=== PATIENT | male | born 1940 | race Asian ===

== ENCOUNTER 2016-05-15 00:44 | Day surgery (SDC) | payer MEDICARE, OTHER ==
[2016-05-15] VITALS (12 sets, daily range): BP systolic 111–142; BP diastolic 68–111; PULSE 67–87; RESP 15–22; O2SAT 92–97
[~2016-05-15 00:44] MED LIST: ACYC400T2 PO; APIX5TAB PO; ATOR20TA PO; CALC-952 PO; CHOL10008 PO; GABA-502 PO; GLUC100016 PO; HYDR12.5 PO; MULT-36 PO; TAMS0.4C98 PO
[2016-05-15] MEDS ORDERED: Phenylephrine 10,000 mCg/mL Inj ONE (00:45)
[2016-05-15] MEDS ORDERED: fentaNYL-PF 50 mCg/mL 2 mL Inj ONE (00:45)
[2016-05-15] MEDS ORDERED: EPHEDrine/NS 5 mg/mL 5 mL Syringe ONE (00:45)
[2016-05-15] MEDS ORDERED: Succinylcholine Chloride 20 mg/mL 5 mL Inj ONE (00:45)
[2016-05-15] MEDS ORDERED: Ondansetron 2 mg/mL 2 mL Inj ONE (00:45)
[2016-05-15] MEDS ORDERED: Phenylephrine/NS 100 mCg/mL 10 mL Syringe IVPUSH ONE (00:45)
[2016-05-15] MEDS ORDERED: Propofol 10,000 mCg/mL 20 mL Inj ONE (00:45)
[2016-05-15] MEDS ORDERED: Lactated Ringer's 1,000 ML IV SCH ×2 (05:00→10:26)
[2016-05-15] MEDS ORDERED: 0.9% Sodium Chloride 1,000 ML IV SCH (06:11)
[2016-05-15 06:41] LABS: BASOPHILS % (AUTO) 0.6 % (0-3); EOSINOPHILS % (AUTO) 2.8 % (0-5); MONOCYTES % (AUTO) 8.1 % (4-12); Mean Corpuscular Hemoglobin 31.3 pg (27.0-35.0); Mean Corpuscular Volume 91.9 fL (81-100); NEUTROPHILS % (AUTO) 58.4 % (40-74); Platelet Count 226 bil/L (150-400)
--- NOTE | 2016-05-15 06:42 | NUR ---
Patient admitted for Atrial flutter ablation with Dr. Herring. He is accompanied by his Obdulia.
[2016-05-15 06:55] LABS: INR 1.01 ratio
--- NOTE | 2016-05-15 07:50 | PCM.HPANE ---
Patient Data Date of Service: May 15, 2016 Surgeon Admitting Provider: Attending Provider:Davon Herring MD Primary Care Physician:Ge Montes MD Other Provider:Christian Rose Anesthesia Reason for Visit Typical Atrial Flutter Ht/WT & BMI Height (Feet): 5 Height (Inches): 9.00 Height (Centimeters): 175.3 Weight (Kilograms): 77 Body Mass Index 0.00 Allergies Coded Allergies: No Known Allergies (Verified Allergy, Unknown, 02/16/16) Past Anesthesia History Anesthesia History: Positive for:: Abnormal Airway (did not bring hearing aids) , Difficult Intubation, Denies:: Anesthesia Reactions, Fam Anesthesia Reaction, Fam Malignant Hypertherm, Malignant Hyperthermia Diabetes History Hx Diabetes?: No MRSA MRSA: No Medications Blood Thinner: Aspirin Last Dose Blood Thinner: May 14, 2016 Hypertension Medication: No Home Meds Incl Beta Leonarda: No Reported Medications Cholecalciferol (Vitamin D3) (Vitamin D3)1,000 Unit Tab.chew1,000 Unit PO DAILY 05/14/16 Apixaban (Eliquis)5 Mg Tablet5 Mg PO BID 05/14/16 Calcium Carbonate/Vitamin D3 (Calcium 500 mg Chewable Tablet)1 Each Tab.chew1 Each PO DAILY 05/14/16 Tamsulosin (Flomax)0.4 Mg Capsule0.8 Mg PO DAILY Ref 0 02/16/16 Atorvastatin (Lipitor)20 Mg [id number] Mg PO DAILY Ref 0 02/16/16 Multivitamin (Daily Multiple Vitamin)1 Each Tablet1 Each PO 12/16/13 Gabapentin 300 Mg [id number] Mg PO TID 30 Days Ref 0 12/16/13 Acyclovir 400 Mg Jqvxft410 Mg PO BID/PRN 30 Days Ref 0 12/16/13 Glucosamine Sulfate 2Kcl (Glucosamine)1,000 Mg Tablet1,000 Mg PO 12/16/13 Discontinued Reported Medications Hydrochlorothiazide 12.5 Mg Pbhrmzk26.5 Mg PO DAILY 30 Days Ref 0 12/16/13 Aspirin 325 Mg [id number] Mg PO #1 BOTTLE 02/16/16 Ca Cmb No.1/Vit D3/B-6/FA/B12 (Vitamin D3 1,000 Unit Tablet)1 Each Tablet1 Each PO DAILY 30 Days 12/16/13 Calcium Carbonate (Calcium)500 Mg [id number] Mg PO 12/16/13 [dipotassium chloride] No Conflict Check 12/16/13 Terazosin 5 Mg Capsule5 Mg PO HS 30 Days Ref 0 12/16/13 Vitamin E Mixed (Vitamin E)1,000 Unit Capsule1,000 Unit PO 12/16/13 [place]-3 Fatty Acids/Fish Oil ([place] 3 1,000 mg Softgel)1 Each CapsuleUnknown Dose PO 12/16/13 History History of ENT Problems?: No HEENT History: Positive for:: Abnormal Airway Cataracts (right eye surgery) Hearing Problem (wears hearing aids) Denies:: Difficult Intubation Hx of Heart Problems?: Yes Cardiovascular History: Positive for:: Edema (recent dx- trt with hctz, compression stockings) Hypertension Irregular Heartbeat (atrial flutter) Denies:: Chest Pain Congestive Heart Failure Coronary Artery Disease Valvular Heart Disease Hx of Respiratory Problem?: No Respiratory History: Positive for:: Cough (recent URI, thinks it's resolved) Denies:: COPD Dyspnea Use of C-PAP Machine Hx Neurologic Problems?: No Neurological History: Positive for:: Peripheral Neuropathy (left arm) Denies:: CVA Seizures Hx of GI Problems?: No Gastrointestinal History: Positive for:: Diverticulitis (DIVERTICULOSIS) Heartburn (mild after large, spicy meals only) Hiatal Hernia Rectal Bleeding (HEMORRHOIDS) Hx of Problems?: Yes Male Hx: Positive for:: Prostate Problems (BPH) Denies:: Scrotal Mass Testicular Surgery Skin History: Denies:: History Skin Disorders? Pressure Ulcers Hx Musculoskeletal Problems?: Yes Musculoskeletal History: Positive for:: Back Injury (C/OF NECK PAIN) Musculoskeletal Trauma (S/P PINNING FX CLAVICLE) Other History/Comment h/o C3-5 spinal fusion, poor neck extension Hx of Psycho/Social Problems?: No Hx Surgeries?: Yes (cervical fusion, right inguinal hernia repair) Hx Any Other Health Problems?: Yes Other History: Denies:: Cancer Endocrine Disease Hospitalization Thyroid Disease History Blood Transfusions: Positive for:: Accept Blood Products? Denies:: Blood Transfusions Hx Diabetes: No Hx Alcohol Use: Yes (occassional)Hx Substance Use: No Smoking Status: Former Smoker Have You Smoked inLast 12 mo: No Stop/Bang Treated for Sleep Apnea?: No Do You Have a CPAP Machine?: No S-Snoring: Do You Snore Loudly: No T-Tired: feel tired, fatigued: No O-Obsered: Observed not breath: No P-Blood Pressure: treated: No B- Body Mass Index > 35 kg/m2: No A- Age over 50: Yes N- Neck Large Circumference: No G- Gender Male: Yes MORIAH Risk Assessment: Low Risk, <3 Yes Risk Assessment Category Category 1A: Patient has history of documented sleep apnea, and HAS NOT received any narcotic, sedative or anesthesia administration during this stay. Category 1B: Patient has history of documented sleep apnea, and HAS received any narcotic , sedative or anesthesia administration during this stay Category 2: Patient has SUSPECTED Obstructive Sleep Apnea, and HAS received any narcotic , sedative or anesthesia administration during this stay. Category 3: Patient has SUSPECTED Obstructive Sleep Apnea and HAS NOT received narcotic, sedative or anesthesia administration during this stay. Category 4: Outpatient in Procedural Areas with known sleep apnea or who screen positive for High Risk via the STOP/BANG questionnaire. Exam Exam Vital Signs Vital Signs Date Time Temp Pulse Resp B/P Pulse Ox O2 Delivery O2 Flow Rate FiO2 05/15/16 06:33 36.6 67 17 130/76 92 Room Air General Appearance: Alert, Oriented X3, Cooperative, No Acute Distress HEENT/AIRWAY: MP 2, Neck Movement (very poor extension), Mouth Opening (normal) , Other (TMD 3 FB) Lungs: Clear to Auscultation, Normal Air Movement Heart: Exam Unremarkable, Regular Rate/Rhythm, No Murmurs/Rubs/Gallops Meds/Labs/Diagnostics Labs Test 05/15/16 06:15 White Blood Count 4.7th/mm3 (3.8-10.1) Red Blood Count 4.44mil/mm3 (4.40-5.80) Hemoglobin 13.9g/dL (13.8-17.2) Hematocrit 40.8% (41.0-50.0) Mean Corpuscular Volume 91.9fL (81-100) Mean Corpuscular Hemoglobin 31.3pg (27.0-35.0) Mean Corpuscular Hemoglobin Concent 34.1% (32.0-37.0) Red Cell Distribution Width 13.0% (12.3-15.4) Platelet Count 226bil/L (150-400) Neutrophils (%) (Auto) 58.4% (40-74) Lymphocytes (%) (Auto) 29.9% (14-46) Monocytes (%) (Auto) 8.1% (4-12) Eosinophils (%) (Auto) 2.8% (0-5) Basophils (%) (Auto) 0.6% (0-3) Prothrombin Time 10.8sec (8.1-12.5) Prothromb Time International Ratio 1.01ratio Sodium Level 139mEq/L (134-144) Potassium Level 4.1mEq/L (3.5-5.2) Chloride Level 104mEq/L (97-108) Carbon Dioxide Level 24mmol/L (18-29) Blood Urea Nitrogen 22mg/dL (8-27) Creatinine 0.73mg/dL (0.76-1.27) Estimat Glomerular Filtration Rate 111mL/min (>59) Glucose Level 96mg/dL (60-99) Calcium Level 8.6mg/dL (8.5-10.1) Diagnositcs TTE 01/2016: The left ventricle is normal in size, wall thickness, and systolic function without any focal wall motion abnormalities. The ejection fraction is estimated to be 60-65%. The right ventricle is normal in size and function. The right ventricular systolic pressure is estimated at 44 mmHg assuming a right atrial pressure of 8 mm Hg. The left atrium is borderline dilated. There is moderate tricuspid regurgitation. There is no other significant valvular heart disease. Plan Impression Patient chart reviewed, patient interviewed and anesthestic plan with risks, benefits, and alternatives discussed, and informed consent obtained. NPO Status: 12/16 at 1930 ASA Physical Status: ASA2 Mod Systemic Disease Anesthetic Support Modalities: [place] Scope Anesthetic Plan: GA Bene/Risks/Altern/Consents: Yes HP Complete Prior to Induction: Yes Ruperto Bocanegra MD May 15, 2016 07:50
[2016-05-15] MEDS ORDERED: Heparin 1,000 Unit/1,000mL NS Premix IV ONE (08:19)
[2016-05-15] MEDS ORDERED: Heparin 5,000 Units/500 mL NS Premix IV ONE (08:19)
[2016-05-15] MEDS ORDERED: Ondansetron 2 mg/mL 2 mL Inj IVPUSH PRN ×2 (10:05→10:30)
[2016-05-15] MEDS ORDERED: HYDROcodone-APAP 5-325 mg Tablet PO PRN (10:05)
[2016-05-15] MEDS ORDERED: Lactated Ringer's 500 ML IV PRN (10:26)
[2016-05-15] MEDS ORDERED: EPHEDrine Sulfate 50 mg/mL Inj IM PRN (10:30)
[2016-05-15] MEDS ORDERED: HYDROmorphone 1 mg/mL Inj IVPUSH PRN (10:30)
[2016-05-15] MEDS ORDERED: hydrALAZINE 20 mg/mL Inj IVPUSH PRN (10:30)
[2016-05-15] MEDS ORDERED: EPHEDrine Sulfate 50 mg/mL Inj IVPUSH PRN (10:30)
[2016-05-15] MEDS ORDERED: fentaNYL-PF 50 mCg/mL 2 mL Inj IVPUSH PRN (10:30)
[2016-05-15] MEDS ORDERED: Albuterol 2.5 mg/3 mL Inhalation Solution NEB PRN (10:30)
[2016-05-15] MEDS ORDERED: Phenylephrine 10,000 mCg/mL Inj IVPUSH PRN (10:30)
[2016-05-15] MEDS ORDERED: Atropine 0.4 mg/mL Inj IVPUSH PRN (10:30)
[2016-05-15] MEDS ORDERED: Labetalol 5 mg/mL 4 mL Inj IV PRN (10:30)
--- NOTE | 2016-05-15 10:32 | PCM.ANEP1 ---
Post Anesthesia Phase 1 PACU Phase 1 Assessment Date of Service: May 15, 2016 Vital Signs Vital Signs Date Time Temp Pulse Resp B/P Pulse Ox O2 Delivery O2 Flow Rate FiO2 05/15/16 10:20 79 22 111/74 96 Room Air 05/15/16 10:17 86 19 133/111 97 Room Air 05/15/16 10:14 37.1 87 20 113/76 96 Room Air 05/15/16 06:33 36.6 67 17 130/76 92 Room Air Anesthetic Administered: GA Level of Alertness: Awake, talking DUMONT's with Equal Strength: Yes Pain: No Nausea or Vomiting: No Oxygen Delivery: Room Air Lungs: Clear to Auscultation, Normal Air Movement Dermatome Level: Full Sensation Ruperto Bocanegra MD May 15, 2016 10:32
--- NOTE | 2016-05-15 11:06 | PROCED ---
[address] [address] PROCEDURE NOTE PATIENT: CHRIS WILLIS : 1940 MR#: [id number] ADMIT: 05/15/2016 JOB ID: [id number] DATE OF SERVICE: 05/15/2016 PREOPERATIVE DIAGNOSIS(ES): Typical atrial flutter. POSTOPERATIVE DIAGNOSIS(ES): Typical atrial flutter. PROCEDURES PERFORMED: 1. Comprehensive electrophysiology study with left atrial pacing recording via the coronary sinus catheter. 2. Three-dimensional electroanatomic mapping using the CARTO 3 system. 3. Atrial flutter ablation (cavotricuspid isthmus ablation; supraventricular tachycardia ablation). 4. Fluoroscopy. SURGEON: Davon Herring MD, electrophysiology attending. COMBAT RIFLE CREWMEMBER: Mandeep Figueroa/Yudelka Wells. ANESTHESIA: General endotracheal anesthesia was undertaken for this case. INDICATION: The patient is a pleasant 75-year-old man with a structurally normal heart and symptomatic typical flutter. After discussion of the risks and benefits of catheter based mapping and ablation, he opted to proceed. PROCEDURAL DESCRIPTION: Following informed consent, the patient was taken to the EP laboratory in a fasting nonsedated state, where he was prepped in the usual sterile fashion. The right inguinal region was infiltrated with 1% lidocaine. Then, using a modified Seldinger technique, one 8 and two 7-Turkmen sheaths were inserted into the right femoral vein. Under fluoroscopic guidance, a deflectable decapolar catheter was advanced through the coronary sinus with the most proximal bipole at the os of the sinus. A 20 pole Livewire catheter was then used to encircle the tricuspid anulus. A J curve Smart Touch irrigated ablation catheter was brought to the field and used to create a three-dimensional electroanatomic map of the right atrium, tricuspid anulus and cavotricuspid isthmus. The patient was in sinus rhythm at the onset of the case. Pacing was undertaken from the coronary sinus os while monitoring the atrial activation pattern on the Livewire catheter. A linear series of ablations was performed from the ventricular to the IVC aspect of the cavotricuspid isthmus while monitoring the atrial activation pattern on the Livewire catheter. Ultimately, medial to lateral block was obtained. Lateral to medial block was confirmed. A 20 minute waiting period was undertaken during which bidirectional block was reconfirmed. During the course of this study, we did complete a comprehensive electrophysiology study with right atrial pacing and recording, right ventricular pacing and recording, His bundle recording sinus catheter. All catheters and sheaths were removed. Manual pressure was held for hemostasis. The patient was sent to the [facility] for monitoring, bedrest and discharge. COMPLICATIONS: None. BLOOD LOSS: Negligible. FINDINGS: 1. Baseline rhythm is sinus with an RR interval of 898 msec, CT 177 msec, QRS 80 msec, QT 385 msec. 2. Intracardiac intervals: AH interval 81 msec, HV 51 msec. 3. Retrograde conduction: No VA conduction was seen. 4. Cavotricuspid isthmus ablation as described above with bidirectional block. Specifically, transisthmus time is 157 msec in both directions post ablation. IMPRESSION: Successful cavotricuspid isthmus ablation for typical recurrent atrial flutter. PLAN: 1. Bedrest x4 hours. 2. Continue current medication regimen including anticoagulation for one more month. 3. Followup with Jaleel Ruff in clinic in 3-4 weeks. At that time, if he is no longer in atrial flutter and has not had recurrence, anticoagulation can be stopped. ATTENDING STATEMENT: Davon Herring MD, electrophysiology attending, was present for and supervised/performed all aspects of this procedure.
--- NOTE | 2016-05-15 14:51 | NUR ---
Discharge instructions reviewed with patient and spouse, right groin intact, patient ambulatory to bathroom for void and ambulated length oh hallway and back.
--- NOTE | 2016-05-15 15:41 | PCM.ANEP2 ---
Post Anesthesia Evaluation ASA/CMS Post Anesthesia Date of Service: May 15, 2016 VS in Patient's Normal Range?: Yes Resp Stable; Airway Patent?: Yes CV Function & Hydration Stable: Yes Mental Status Recovered?: Yes Pain control Satisfactory?: Yes N/V Control Satisfactory?: Yes Ruperto Bocanegra MD May 15, 2016 15:41
== END 2016-05-15 23:59 | disposition home or self-care (01) ==
LOC: ORA 00:44 → SOUO 23:59
PROVIDERS: ATTEND Internal Medicine Cardiovascular Disease
DX: I48.3 Typical atrial flutter (principal); I10 Essential (primary) hypertension; N40.1 Benign prostatic hyperplasia with lower urinary tract symptoms; R33.9 Retention of urine, unspecified; R39.15 Urgency of urination; Z79.01 Long term (current) use of anticoagulants
CPT/HCPCS: 36415; 80048; 85025; 85610; 93005; 93613; 93621; 93653; C1730; C1731; C1893; C1894; J0330; J1644; J2370; J2405; J7030; J7120